=== PATIENT | female | born 1950 | race Native Hawaiian/Other Pacific Islander ===

== ENCOUNTER 2018-03-19 18:55 | Emergency (ER) | payer OTHER ==
[~2018-03-19] VITALS: Ht 165.1 cm; Wt 72.6 kg
[2018-03-19] MEDS ORDERED: ASPIRIN 81 LOW81 MG PO (19:38)
[2018-03-19] MEDS ORDERED: CAPT50TA PO (19:38)
[2018-03-19] MEDS ORDERED: ROSU10TA PO (19:39)
[2018-03-19] MEDS ORDERED: NEOMSUS6 OPTH (19:39)
[2018-03-19] MEDS ORDERED: CORRECTOL100 MG PO (19:40)
[2018-03-19] MEDS ORDERED: DIPYRIDAMOLE PO (19:40)
[2018-03-19] MEDS ORDERED: ESCITALOPRAM20 MG PO (19:41)
[2018-03-19] MEDS ORDERED: TRICOR145 M1 PO (19:42)
[2018-03-19] MEDS ORDERED: HYDR25TA60 PO (19:42)
[2018-03-19] MEDS ORDERED: FAMOTIDINE20 MG PO (19:42)
[2018-03-19 19:43] LABS: PLATELET COUNT 287 K/uL (152-353)
[2018-03-19] MEDS ORDERED: XARELTO15 MG PO (19:43)
[2018-03-19] MEDS ORDERED: ROWEEPRA500 MG PO (19:43)
[2018-03-19 19:47] LABS: POTASSIUM 4.5 mmol/L (3.6-5.2)
[2018-03-19 21:25] VITALS: BP 106/72; TEMP 98.1
[2018-03-20] MEDS ORDERED: ARTIFICIA2 OPTH (04:40)
[2018-03-20] MEDS ORDERED: BUSP15TAB2 PO (04:45)
[2018-03-20] MEDS ORDERED: CETIRIZINE10 MG PO (04:48)
[2018-03-20] MEDS ORDERED: DIVA250T2 PO (04:57)
[2018-03-20] MEDS ORDERED: GABA300C2 PO (05:00)
[2018-03-20] MEDS ORDERED: COUGH100 MG/5 M PO (05:03)
[2018-03-20] MEDS ORDERED: JANUVIA100 MG PO (05:05)
[2018-03-20] MEDS ORDERED: KLOR-CON M2020 MEQ PO (05:08)
[2018-03-20] MEDS ORDERED: FURO40TA93 PO (05:09)
[2018-03-20] MEDS ORDERED: LISI10TA11 PO (05:11)
[2018-03-20] MEDS ORDERED: METF500T PO (05:12)
[2018-03-20] MEDS ORDERED: MIRALAX3350 N1 PO (05:14)
[2018-03-20] MEDS ORDERED: PEPTO-BISM524 MG/30 PO (05:19)
[2018-03-20] MEDS ORDERED: ACETAMINOPHEN PO (05:24)
[2018-03-20] MEDS ORDERED: VIT B12/FA PO (05:25)
[2018-03-20] MEDS ORDERED: DICL1GEL2 TOP (05:27)
[2018-03-20] MEDS ORDERED: SERT100T PO (05:28)
[2018-03-31] MEDS ORDERED: BUSP15TAB2 PO (12:17)
[2018-03-31] MEDS ORDERED: DIVA250T2 PO (12:18)
[2018-03-31] MEDS ORDERED: SERT100T PO (12:21)
[2018-03-31] MEDS ORDERED: DOXYCYCL HYC100 MG PO (12:22)
[2018-04-01] MEDS ORDERED: SERT50TA PO (11:33)
== END 2018-03-19 21:25 | disposition other institution (70) ==
LOC: ED 18:55
PROVIDERS: Emergency Medicine
DX: F28 Other psychotic disorder not due to a substance or known physiological condition (principal); J40 Bronchitis, not specified as acute or chronic; Z04.6 Encounter for general psychiatric examination, requested by authority; Z79.899 Other long term (current) drug therapy
CPT/HCPCS: 36415; 80053; 81000; 85027; 87040; 87077; 87086; 87088; 87186; 99285

== ENCOUNTER 2018-05-12 19:10 | Emergency (ER) | payer OTHER ==
[~2018-05-12] VITALS: Ht 160 cm; Wt 68.5 kg
[~2018-05-12 19:10] MED LIST: ACETAMINOPHEN PO; ARTIFICIA2 OPTH; ASPIRIN 81 LOW81 MG PO; BUSP15TAB2 PO; CAPT50TA PO; CETIRIZINE10 MG PO; CORRECTOL100 MG PO; COUGH100 MG/5 M PO; DICL1GEL2 TOP; DIPYRIDAMOLE PO; DIVA250T2 PO; DOXYCYCL HYC100 MG PO; ESCITALOPRAM20 MG PO; FAMOTIDINE20 MG PO; FURO40TA93 PO; GABA300C2 PO; HYDR25TA60 PO; JANUVIA100 MG PO; KLOR-CON M2020 MEQ PO; LISI10TA11 PO; METF500T PO; MIRALAX3350 N1 PO; NEOMSUS6 OPTH; PEPTO-BISM524 MG/30 PO; ROSU10TA PO; ROWEEPRA500 MG PO; SERT100T PO; SERT50TA PO; TRICOR145 M1 PO; VIT B12/FA PO; XARELTO15 MG PO
[2018-05-12 19:54] LABS: PLATELET COUNT 257 K/uL (152-353)
[2018-05-12 19:59] LABS: POTASSIUM 4.5 mmol/L (3.6-5.2)
[2018-05-12 22:15] VITALS: BP 131/86; TEMP 98.5
[2018-05-13] MEDS ORDERED: SERT100T PO (00:33)
[2018-05-13] MEDS ORDERED: SERT50TA PO (00:35)
[2018-05-13] MEDS ORDERED: ROBITUSSIN100 MG/5 M PO (00:38)
[2018-05-13] MEDS ORDERED: PEPCID20 MG PO (00:39)
[2018-05-13] MEDS ORDERED: CAPT50TA PO (00:42)
[2018-05-13] MEDS ORDERED: B-12500 MCG PO (00:45)
[2018-05-13] MEDS ORDERED: DIVA250T2 PO (00:51)
[2018-05-13] MEDS ORDERED: SPRITAM500 MG PO (00:54)
[2018-05-13] MEDS ORDERED: HC VALERATE EX (00:58)
[2018-05-13] MEDS ORDERED: CETI10TA PO (00:59)
== END 2018-05-12 22:15 | disposition other institution (70) ==
LOC: ED 19:10
DX: R46.89 Other symptoms and signs involving appearance and behavior (principal); F32.89 Other specified depressive episodes; Z04.6 Encounter for general psychiatric examination, requested by authority
CPT/HCPCS: 36415; 80053; 82550; 84484; 85027; 93005; 99285